=== PATIENT | female | born 1990 | race Two or more races ===

== ENCOUNTER 2017-10-03 13:37 | Emergency (ER) | payer MEDICAID ==
[~2017-10-03] VITALS: Ht 160 cm; Wt 105.0 kg
[2017-10-03] MEDS ORDERED: ONDANSETRON HCL 4MG/2ML VIAL IV STA (14:11)
[2017-10-03] MEDS ORDERED: MORPHINE SULFATE 4 MG/ML CPJ (NOT FOR IM USE) IV STA (14:11)
[2017-10-03] MEDS ORDERED: SODIUM CHLORIDE 0.9% 1,000 ML IV ONE (14:11)
[2017-10-03] MEDS ORDERED: MAGNESIUM/ALUMINUM HYDROXIDE/SIMETHICONE 30ML UDC PO ONE (14:15)
[2017-10-03] MEDS ORDERED: FAMOTIDINE 20MG/2ML VIAL IV ONE (14:15)
[2017-10-03 14:46] LABS: BASOPHILS % 0.9 % (0.0-2.0); EOSINOPHILS % 3.2 % (0.0-5.0); HEMATOCRIT. 38.2 % (36.0-48.0); HEMOGLOBIN. 12.6 g/dL (12.0-16.0); LYMPHOCYTES % 41.2 % (20.0-50.0); MEAN CORPUSCULAR HEMOGLOBIN 27.2 pg (28.0-32.0); MEAN CORPUSCULAR VOLUME 82.8 fL (81.0-99.0); MONOCYTES % 9.2 % (2.0-8.0); NEUTROPHILS % 45.5 % (40.0-76.0); PLATELET 408 x1000/uL (130-400); RED BLOOD CELL COUNT 4.62 mill/uL (4.2-5.4)
[2017-10-03 14:50] LABS: CHLORIDE 103 mEq/L (98-107)
[2017-10-03 14:53] LABS: ETHANOL BLOOD < 10 mg/dL
[2017-10-03 14:54] LABS: INR 1.1; PARTIAL THROMBOPLASTIN TIME 27.3 sec (23.4-31.0); PROTHROMBIN TIME 11.2 sec (9.1-11.1)
[2017-10-03 15:00] LABS: HCG SCREEN NEGATIVE
[2017-10-03] MEDS ORDERED: KETOROLAC 30MG/ML VIAL IV ONE (16:45)
[2017-10-03] MEDS ORDERED: MORPHINE SULFATE 4 MG/ML CPJ (NOT FOR IM USE) IV ONE (17:45)
[2017-10-03] MEDS ORDERED: ONDANSETRON HCL 4MG/2ML VIAL IV ONE (17:45)
[2017-10-03 19:02] LABS: CLARITY URINE CLEAR (CLEAR); COLOR URINE YELLOW (YELLOW); KETONES URINE NEGATIVE (NEGATIVE); LEUKOCYTE ESTERASE URINE NEGATIVE (NEGATIVE); NITRITE URINE NEGATIVE (NEGATIVE); OCCULT BLOOD URINE NEGATIVE (NEGATIVE); PH URINE 5.5 (4.5-8.0); PROTEIN URINE NEGATIVE (NEGATIVE); SPECIFIC GRAVITY URINE 1.008 (1.005-1.030); UROBILINOGEN URINE 0.2 E.U./dL (0.2-1.0)
[2017-10-03 19:10] VITALS: BP 106/69
[2017-10-03 19:21] LABS: *AMPHETAMINES SCREEN URINE NEGATIVE (NEGATIVE); *BARBITURATES SCREEN URINE NEGATIVE (NEGATIVE); *BENZODIAZEPINES SCREEN URINE NEGATIVE (NEGATIVE); *COCAINE SCREEN URINE NEGATIVE (NEGATIVE)
[2017-10-03 19:22] LABS: CANNABINOID URINE SCREEN NEGATIVE (NEGATIVE); METHADONE URINE SCREEN NEGATIVE (NEGATIVE); PHENCYCLIDINE URINE SCREEN NEGATIVE (NEGATIVE)
[2017-10-03 19:32] LABS: OPIATES URINE SCREEN PRESUMTIVE POSITIVE (NEGATIVE)
== END 2017-10-03 19:15 | disposition home or self-care (01) ==
LOC: ER 14:44
DX: R07.89 Other chest pain (principal); K21.9 Gastro-esophageal reflux disease without esophagitis; R03.0 Elevated blood-pressure reading, without diagnosis of hypertension; F17.210 Nicotine dependence, cigarettes, uncomplicated; Z79.899 Other long term (current) drug therapy
CPT/HCPCS: 36415; 71045; 80053; 80305; 81003; 81025; 83690; 83880; 84484; 84703; 85025; 85610; 85730; 93005; 96361; 96374; 96375; 96376; 99285; G0482; J1885; J2270; J2405; J3490; J7030